=== PATIENT | male | born 1990 | race Caucasian/White ===

== ENCOUNTER 2016-11-14 17:07 | Inpatient (IN) | payer MEDICAID, OTHER ==
[~2016-11-14] VITALS: Ht 172.7 cm; Wt 96.9 kg
[2016-11-14 17:24] VITALS: BP 123/79; PULSE 96; RESP 16; O2SAT 96
--- NOTE | 2016-11-14 18:25 | ED.REPORT ---
HPI-Psychiatric Illness Date of Service Nov 14, 2016 ED Provider: Elijah Auguste MD This is a 26 year male with a history of bipolar disorder and asthma presenting to the emergency department accompanied by parents due to abnormal behavior that began 6 hours ago. Pt states he tried to jump out of a moving car "without thinking of the consequences." Pt does not remember the reason for his actions. Pt states he was frustrated today because he was arguing with his parents but he is unaware of why. Additionally, he states that he was walking his dog 3 hours ago and walked in front of a car without realization, "I just wasn't paying attention." He adds, "I feel like I don't belong on earth...I don't want to end my life, I just don't want to be here." He denies previous suicidal attempt. Denies hallucinations. Family members report that anger and verbal aggression has progressively worsened in the last few months. Father adds that he has been abusing his pet cat. Treatment managed at [facility]. Nursing Notes Stated Complaint: PSYCH EVAL Chief Complaint: Psychiatric Complaint Nursing Notes Reviewed: Yes Allergies: Coded Allergies: diphenhydramine (Verified Allergy, Unknown, Agitation, 11/14/16) Anger General Time Seen by MD: 18:24 Chief Complaint Suicidal attempt Hx Obtained From: Patient, Other family... (Mother) Arrived By: Walk-in Onset Occurred: 5 - 8 hours ago Symptom Duration: Since onset Severity: Current: No pain currently Pertinent Negative: Pt denies other symptoms Recent Healthcare: No recent doctor visit, No recent hospitalization Similar Sx Previous: No Risk-Psychiatric Illness Suicide Risk Stratification RF Statements: Risk factors reviewed, No risk factors Past Medical History Past Medical History History of psychiatric illness Ambulatory Status Independent Review of Systems Constitutional: Denies: Chills, Fever GI: Denies: Abdominal pain, Nausea, Vomiting Psychiatric: Reports: Agitation, Suicidal ideation, Denies: Homicidal ideation Complete sys rev & neg: except as marked. Physical Exam Initial Vital Signs Vital Signs (First) Date Time Temp Pulse Resp B/P Pulse Ox O2 Delivery O2 Flow Rate FiO2 11/14/16 17:24 36.7 96 16 123/79 96 Room Air Initial VS: Reviewed Head / Eyes: Atraumatic, Normocephalic, PERRL ENT: Mucous membranes moist, Conjunctiva normal, No scleral icterus Neck: Supple, Non-tender, Full range of motion Respiratory: Breath sounds normal, Clear to auscultation, No respiratory distress Cardiovascular: Regular rate & rhythm, Heart sounds normal, Intact distal pulses Extremities: Vascular intact, Neuro intact, No swelling, No tenderness Skin: Warm, Dry, No cyanosis General/Constitutional: Awake Neurologic: Oriented X3, Speech NL, No motor deficits, No sensory deficits, Memory NL Psychiatric: Not homicidal, No hallucinations Interpretation & Diagnostics Interpretation & Diagnostics: Urine Dip: + opiates + tricyclics Breathalyzer: 0 Lab Results Interpretation Result Diagram: 11/14/16194811/14/161948 Test 11/14/16 19:49 White Blood Count 8.1th/mm3 (3.8-10.1) Red Blood Count 5.14mil/mm3 (4.40-5.80) Hemoglobin 13.3g/dL (13.8-17.2) Hematocrit 40.5% (41.0-50.0) Mean Corpuscular Volume 78.8fL (81-100) Mean Corpuscular Hemoglobin 25.9pg (27.0-35.0) Mean Corpuscular Hemoglobin Concent 32.8% (32.0-37.0) Red Cell Distribution Width 13.1% (12.3-15.4) Platelet Count 246bil/L (150-400) Neutrophils (%) (Auto) 54.9% (40-74) Lymphocytes (%) (Auto) 34.6% (14-46) Monocytes (%) (Auto) 8.2% (4-12) Eosinophils (%) (Auto) 1.9% (0-5) Basophils (%) (Auto) 0.4% (0-3) Sodium Level 141mEq/L (134-144) Potassium Level 3.7mEq/L (3.5-5.2) Chloride Level 106mEq/L (97-108) Carbon Dioxide Level 18mmol/L (18-29) Blood Urea Nitrogen 20mg/dL (6-20) Creatinine 1.55mg/dL (0.76-1.27) Estimat Glomerular Filtration Rate 58mL/min (>59) Glucose Level 122mg/dL (60-99) Calcium Level 9.1mg/dL (8.5-10.1) Total Bilirubin 0.2mg/dL (0.0-1.2) Aspartate Amino Transf (AST/SGOT) 16U/L (0-50) Alanine Aminotransferase (ALT/SGPT) 12U/L (0-44) Alkaline Phosphatase 120U/L (25-150) Total Protein 7.3g/dL (6.4-8.4) Albumin 4.8g/dL (3.4-5.0) Thyroid Stimulating Hormone (TSH) 0.910uIU/mL (0.450-4.500) Hold Guajardo Top Tube Received (Received) Re-Eval/Medical Decision Med Decision/Clinical Course Will be evulated by licensed clinical social worker in the morning. Re-Evaluation/Progress : Time of Eval: 21:16 Re-Evaluation/Progress Note: Discussed plan for re-evaluation by social problems specialist in the morning. Counseled Regarding: Diagnosis, Lab results, Need for follow-up Discharge & Departure Shift Change Sign-Out Patient Care Transferred: Yes Discussed Complaint(s): Yes Laboratory Evaluation: Back, reviewed by me Input from Consult: Awaiting licensed clinical social worker in am. Given usual evening meds. Additonal Information: To Dr Wright at midnight. Impression: Primary Impression: Agitation Discharge Condition All VS Reviewed: Yes Condition: Stable Referrals: [facility] (PCP) Care Transferred to: Dr. Wright at change of shift Care Transferred at: 00:00 Nina Attestation Portions of this note were transcribed by Uvaldo Kimbrough. I, Dr. Auguste personally performed the history, physical exam and medical decision-making; I reviewed and confirmed the accuracy of the information in the transcribed note. Signed by Nina Mann, 11/14/2016 at 20:00. Elijah Auguste MD Nov 14, 2016 18:25 UVALDO KIMBROUGH Nov 14, 2016 18:28
[2016-11-14 20:02] LABS: BASOPHILS % (AUTO) 0.4 % (0-3); EOSINOPHILS % (AUTO) 1.9 % (0-5); MONOCYTES % (AUTO) 8.2 % (4-12); Mean Corpuscular Hemoglobin 25.9 pg (27.0-35.0); Mean Corpuscular Volume 78.8 fL (81-100); NEUTROPHILS % (AUTO) 54.9 % (40-74); Platelet Count 246 bil/L (150-400)
[2016-11-14] MEDS ORDERED: lamoTRIgine 100 mg Tablet PO ONE (21:15)
[2016-11-15] MEDS ORDERED: Ondansetron 8 mg ODT Tablet ONE (04:32)
[2016-11-15] MEDS ORDERED: Ondansetron 8 mg ODT Tablet PO ONE (06:00)
[2016-11-15 06:04] VITALS: BP 126/81; PULSE 89; RESP 16; O2SAT 97
[2016-11-15 12:59] VITALS: BP 140/95; PULSE 81; O2SAT 100
[2016-11-15] MEDS ORDERED: ZLP10T PO (14:03)
[2016-11-15] MEDS ORDERED: AMIT100T2 PO (14:04)
[2016-11-15] MEDS ORDERED: TOPI100C5 PO (14:04)
[2016-11-15] MEDS ORDERED: LAMO100T2 PO (14:05)
[2016-11-15] MEDS ORDERED: ATRINH INH (14:06)
[2016-11-15] MEDS ORDERED: MONT10TA23 PO (14:06)
[2016-11-15] MEDS ORDERED: PYRI60TA PO (14:07)
[2016-11-15] MEDS ORDERED: METO10TA3 PO (14:08)
[2016-11-15] MEDS ORDERED: PERP4TAB11 PO ×2 (14:09)
[2016-11-15 15:59] VITALS: BP 140/95; PULSE 81; RESP 16; O2SAT 100
[2016-11-15] MEDS ORDERED: Magnesium Hydroxide 10 mL Oral Concentration PO PRN (19:10)
[2016-11-15] MEDS ORDERED: Benzocaine-Menthol Lozenge 2/Pkg PO PRN (19:10)
[2016-11-15] MEDS ORDERED: Alum-Mag Hydrox-Simeth 30 mL Suspension PO PRN (19:10)
[2016-11-15] MEDS ORDERED: Ipratropium HFA 200 Puff 12.9 Gm Inhaler INHALATION PRN (19:15)
[2016-11-15] MEDS: lamoTRIgine 100 mg Tablet PO SCH (21:10)
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
--- NOTE | 2016-11-16 04:48 | NUR ---
Observations 1900 to 0700 Pt affect was flat. Pt was anxious at times. Pt asked to watch a relaxation DVD to hep him settle down. Pt socialized with peers the rest of the night before he went to bed. pt first appeared asleep at 22:15 and was observed every 15 minutes through the night as directed.
--- NOTE | 2016-11-16 05:33 | NUR ---
nursing, nights, 11-7 s/o- has appeared to sleep after 2214 during q 15 minute assessments. a- no apparent distress. p- monitor behavior/emotional state, quality, times and amount of sleep, use and effect of medication. jeanna
--- NOTE | 2016-11-16 14:42 | NUR ---
S: "Staring at screens was making me sick" O: Behavior, pt participated in group activities, socializing appropriately with fellow pts and staff, appropriate eye contact, some pacing the hallways. very talkative. Reports loud music makes him more manic. Limited range of emotional expression. Speech monotone, verbose. Denies AH, VH, SI. Pt reports concerns about constipation. Requested and given milk of magnesia. Mental status alert, awake. Thought content clear, concrete. Well groomed. 138/91, 91, 16, 36.1. A: Pt adjusting to unit well. P: Continue with treatment plan, provide calm quiet environment. Continue to monitor.
[2016-11-16] MEDS: LORazepam 1 mg Tablet PO PRN (16:13)
--- NOTE | 2016-11-16 16:45 | PCM.PNPSY ---
Subjective Date of Service Nov 16, 2016 Subjective The patient reports that he is feeling much better today with decreased toe tapping and decreased fidgeting. He reports that he is not been putting his finger in his nose and does have decreased the chewing. He reports that he is had no anger outbursts or irritability. The patient is socializing with peers on the unit and reports that this is helpful in maintaining his mood stability. He denies side effects. Sleep: "Okay" 7.75 hours per staff. Appetite: "Pretty good" Suicidal and homicidal ideation: Denies Auditory hallucinations/Visual hallucinations: Denies Other Psychotic Symptoms: N/A Anxiety: "Up and down, can't put a number on it" Depression: "In the middle" Current Medications Current Medications Amantadine HCl 100 mg BID PO Last administered on 11/16/16 08:27; Admin Dose 100 MG; Start 11/15/16 at 20:30 Amitriptyline HCl 100 mg HS PO Last administered on 11/15/16 21:10; Admin Dose 100 MG; Start 11/15/16 at 21:00 Amitriptyline HCl 100 mg ONCE ONCE PO Last administered on 11/14/16 21:58; Admin Dose 100 MG; Start 11/14/16 at 21:15; Stop 11/14/16 at 21:18; Status DC Lamotrigine 100 mg HS PO Last administered on 11/15/16 21:10; Admin Dose 100 MG ; Start 11/15/16 at 21:00 Lamotrigine 100 mg ONCE ONCE PO Last administered on 11/14/16 21:38; Admin Dose 100 MG; Start 11/14/16 at 21:15; Stop 11/14/16 at 21:18; Status DC Lorazepam 1 mg Q4H PRN PO Last administered on 11/16/16 16:13; Admin Dose 1 MG ; Start 11/15/16 at 19:10 Magnesium Hydroxide 10 ml Q12H PRN PO Last administered on 11/16/16 14:14; Admin Dose 10 ML; Start 11/15/16 at 19:10 Montelukast Sodium 10 mg DAILY PO Last administered on 11/16/16 08:49; Admin Dose 10 MG; Start 11/16/16 at 08:30 Ondansetron HCl 8 mg STK-MED ONCE .ROUTE Last administered on 11/15/16 04:37; Admin Dose 8 MG; Start 11/15/16 at 04:32; Stop 11/15/16 at 04:34; Status DC Perphenazine 8 mg DAILY PO Last administered on 11/16/16 08:27; Admin Dose 8 MG ; Start 11/16/16 at 08:30 Perphenazine 8 mg ONCE ONCE PO Last administered on 11/14/16 21:37; Admin Dose 8 MG; Start 11/14/16 at 21:25; Stop 11/14/16 at 21:26; Status DC Perphenazine 8 mg ONCE ONCE PO Last administered on 11/15/16 15:26; Admin Dose 8 MG; Start 11/15/16 at 14:45; Stop 11/15/16 at 14:46; Status DC Perphenazine 16 mg HS PO Last administered on 11/15/16 21:11; Admin Dose 16 MG; Start 11/15/16 at 21:00 Pyridostigmine [place] 60 mg DAILY PO Last administered on 11/16/16 08:27; Admin Dose 60 MG; Start 11/16/16 at 08:30 Pyridostigmine [place] 60 mg ONCE ONCE PO Last administered on 11/15/16 15:26; Admin Dose 60 MG; Start 11/15/16 at 14:45; Stop 11/15/16 at 14:46; Status DC Topiramate 150 mg BID PO Last administered on 11/16/16 08:42; Admin Dose 150 MG ; Start 11/15/16 at 20:30 Topiramate 300 mg ONCE ONCE PO Last administered on 11/14/16 21:37; Admin Dose 300 MG; Start 11/14/16 at 21:15; Stop 11/14/16 at 21:18; Status DC Zolpidem Tartrate 10 mg HS PRN PO Last administered on 11/15/16 21:38; Admin Dose 10 MG; Start 11/15/16 at 20:20 Zolpidem Tartrate 10 mg ONCE ONCE PO Last administered on 11/14/16 21:42; Admin Dose 10 MG; Start 11/14/16 at 21:25; Stop 11/14/16 at 21:26; Status DC Mental Status Exam Appearance: Neat/well groomed Attitude: Pleasant, Cooperative Behavior: Overtly anxious (some rocking) Affect: Well Modulated/Appropriate Mood: Anxious Thought Process/Associations: Logical/Sequential, Goal Directed Speech Production: Normal Speech Rate: Normal Speech Articulation: Normal Thought Content: Appropriate Danger to Self/Suicidal Ideati: None Danger to Others: None Hallucinations: Auditory (Denies), Visual (Denies) Consciousness: Alert Orientation: Person, Place, Date, Situation Estimate Intellectual Function: Below Average (by history) Insight: Good Judgement: Limited Result Diagram: 11/14/16194811/14/161948 Mental Health Plan The patient is a 26-year-old male with a history of bipolar disorder who presents with worsening anger and irritability. The patient was recently prescribed Tegretol in September which would have lowered his perphenazine and amitriptyline levels, possibly leading to increased irritability. He is no longer taking this medication. The patient also appeared to have restlessness which could be consistent with akathisia from the perphenazine. He also presents with symptoms that are consistent with posttraumatic stress disorder but does not appear to meet full criteria. The patient also reports a history of intellectual disability. The patient had previously reported nightmares although appears to slept well last night. Although the patient has a history of bipolar disorder he does receive amitriptyline although this medication is not unopposed by lamotrigine but could be driving some of his jun. The patient is reluctant to change medications such as increasing lamotrigine and decreasing amitriptyline. The patient appears to responded well to amantadine with decreased symptoms overall. [place] Deer[place] I 1. Bipolar manic with psychotic features, by history, current episode mixed without psychotic features. 2. Mood disorder, unspecified versus posttraumatic stress disorder. [place] II Intellectual impairment by history. [place] III Asthma, recent testicular infection. [place] IV Moderate with difficulty in interpersonal interactions and limited activity outside the home. [place] V Global assessment of functioning 35 Medications Medications to address General Physical Health Treatments 1. The patient will be admitted to the Mental Health Unit and provided a safe environment. 2. The patient is not currently exhibiting homicidal or suicidal ideation and does not warrant an increased level of observation or 1 to 1. 3. Outpatient medications will be continued while in the hospital. 4. He will also receive Atrovent 2 puffs four times a day as needed for shortness of breath. 5. Amantadine 100 mg p.o. b.i.d. will be started for akathisia and possible EPS as well as impulsivity. Medication will be titrated as needed. 6. Outpatient records have been requested from his provider. 7. Anticipated length of stay is 5-7 days. Jatinder Duff MD Nov 16, 2016 16:45
--- NOTE | 2016-11-16 17:36 | NUR ---
Cot[employer]/Counselor: S: "The word 'headache' is a trigger word for me, when I hear that word, I usually get a headache." O: Patient slept 7.25 hours last night as per staff. He denies S/I and H/I. He also denies auditory and visual hallucinations. Depression is "in the middle, it's tolerable, I can't rate it" and anxiety is "up and down, I can't rate it." When asked his mood, patient stated, "I feel better." Patient reports that he is not picking his nose or biting his bottom lip as much as he once did before coming to [facility]. A: Patient is cooperative, anxious, good insight, limited judgment. P: Follow care plan, coordinate out-patient providers.
--- NOTE | 2016-11-16 18:31 | NUR ---
NURS note [id number] shift Orientation:3x Mood:"I feel pretty nervous." Anxiety 7/10, depression "not much." Affect: Anxious, pleasant, cooperative. Behavior: Pt up in day room, participating in activity most of day. Currently, visiting with family. Making frequent requests of staff. Taps foot, bites lips, and picks at inside of nose and fingernails when nervous. Thought processes: Logical, somewhat tangential. PRN/Nursing Note: Lorazepam 1 mg for anxiety at 1600. Milk of magnesia 10 mg at 1400 for constipation.
--- NOTE | 2016-11-16 18:39 | NUR ---
[facility] Day Shift Pt maintained behavioral control throughout the shift. Pt affect appears mostly flat, bright when engaged with staff and peers. Pt appears quite needy throughout the shift, seeking constant interaction with staff and peers. Pt complains of various physical and mental annoyances throughout the shift (i.e. pt complains of small tics, itches). Pt occasionally appears restless throughout the shift. Pt attended community meeting in the AM and group activities throughout the shift. Pt attended all meals and ate approx 100% of all meals.
[2016-11-16 18:48] VITALS: BP 138/91; PULSE 91; RESP 16
[2016-11-16] MEDS ORDERED: Sodium Chloride NAS 45 mL Spray NASAL PRN (18:55)
[2016-11-16] MEDS: lamoTRIgine 100 mg Tablet PO SCH (21:20)
--- NOTE | 2016-11-17 05:22 | NUR ---
Pt had visit from family. Out on unit in evening. Asleep at 2200. Pt observed every 15 minutes as ordered.
--- NOTE | 2016-11-17 05:30 | NUR ---
nursing, nights, 11-7 s/o- has appeared to sleep after 2200 during q 15 minute assessments. a- no apparent distress. p- monitor behavior/emotional state, quality, times and amount of sleep, use and effect of medication. jeanna
[2016-11-17] MEDS: LORazepam 1 mg Tablet PO PRN ×3 (10:14→15:21)
--- NOTE | 2016-11-17 12:21 | NUR ---
NURS note day shift Orientation:x4 Mood: Depression 12/22; anxiety 04/23, decreased to 4/10 after PRN. Affect: Blunted, anxious. Pt stated that he began feeling angry and agitated when talking with other pts in day room, given PRN ativan. Behavior: Endorses SI, denies plan but states "I saw a noose" and "I saw myself ." Pt up in day room most of shift. Frequently asks staff to talk about various problems/issues/symptoms. Denies HI, AH, and VH; but does reported hearing "audiotape" of voices form the past and has visions "as if watching a movie in [his] head." Thought processes: Tangential. PRN/Nursing Note: Ativan 1 mg PRN for agitation and anxiety, effective. Report transient weakness in arms/wrists.
[2016-11-17 16:45] VITALS: BP_SYST 115; BP_SYST 120; BP_DIAS 70; PULSE 77; PULSE 80; RESP 16
--- NOTE | 2016-11-17 17:26 | PCM.PNPSY ---
Subjective Date of Service Nov 17, 2016 Subjective The patient reports that he he feels that the medication is still quite helpful. He reports that the triggers are not bothering him as much. Examples of triggers are yelling, raised voices, "rents" and "cussing." He reports that they do not last as long as they are not as bad. He reports that he has not been excoriating his nose and his lip biting is better. He reports limiting game time may be beneficial and states his father is working on this for home. Although he denies chong auditory hallucinations, he does report having memories still running in his head like a tape recorder but the 2 are not as bad. He reports that he is scratching his body somewhat but this also is reduced. He states that he is still not sure whether he is ready to go home as he is having some increased restlessness and night. He would like to optimize medications. He denies side effects. Sleep: 8+ hours per staff. Appetite: "good" Suicidal and homicidal ideation: Denies Auditory hallucinations/Visual hallucinations: Denies Other Psychotic Symptoms: N/A Anxiety: "Lower" 1-5/10 "it is hard to put a number to it" Depression: "A lot lower" 1-5/10 "it is hard to put a number to it" Current Medications Current Medications Amantadine HCl 100 mg BID PO Last administered on 11/17/16 08:14; Admin Dose 100 MG; Start 11/15/16 at 20:30 Amitriptyline HCl 100 mg HS PO Last administered on 11/16/16 21:20; Admin Dose 100 MG; Start 11/15/16 at 21:00 Lamotrigine 100 mg HS PO Last administered on 11/16/16 21:20; Admin Dose 100 MG ; Start 11/15/16 at 21:00 Lorazepam 1 mg Q4H PRN PO Last administered on 11/17/16 10:14; Admin Dose 1 MG ; Start 11/15/16 at 19:10 Magnesium Hydroxide 10 ml Q12H PRN PO Last administered on 11/16/16 14:14; Admin Dose 10 ML; Start 11/15/16 at 19:10 Montelukast Sodium 10 mg DAILY PO Last administered on 11/17/16 08:11; Admin Dose 10 MG; Start 11/16/16 at 08:30 Perphenazine 8 mg DAILY PO Last administered on 11/17/16 08:12; Admin Dose 8 MG ; Start 11/16/16 at 08:30 Perphenazine 16 mg HS PO Last administered on 11/16/16 21:20; Admin Dose 16 MG; Start 11/15/16 at 21:00 Pyridostigmine [place] 60 mg DAILY PO Last administered on 11/17/16 08:11; Admin Dose 60 MG; Start 11/16/16 at 08:30 Topiramate 150 mg BID PO Last administered on 11/17/16 08:13; Admin Dose 150 MG ; Start 11/15/16 at 20:30 Zolpidem Tartrate 10 mg HS PRN PO Last administered on 11/16/16 21:23; Admin Dose 10 MG; Start 11/15/16 at 20:20 Mental Status Exam Appearance: Neat/well groomed Attitude: Pleasant, Cooperative Behavior: Overtly anxious (some toe tapping) Affect: Well Modulated/Appropriate Mood: Anxious Thought Process/Associations: Logical/Sequential, Goal Directed Speech Production: Normal Speech Rate: Normal Speech Articulation: Normal Thought Content: Appropriate Danger to Self/Suicidal Ideati: None Danger to Others: None Hallucinations: Auditory (Denies), Visual (Denies) Consciousness: Alert Orientation: Person, Place, Date, Situation Estimate Intellectual Function: Below Average (by history) Insight: Good Judgement: Limited Result Diagram: 11/14/16194811/14/161948 Mental Health Plan The patient is a 26-year-old male with a history of bipolar disorder who presents with worsening anger and irritability. The patient was recently prescribed Tegretol in September which would have lowered his perphenazine and amitriptyline levels, possibly leading to increased irritability. He is no longer taking this medication. The patient also appeared to have restlessness which could be consistent with akathisia from the perphenazine. He also presents with symptoms that are consistent with posttraumatic stress disorder but does not appear to meet full criteria. The patient also reports a history of intellectual disability. The patient had previously reported nightmares but has slept well so far. Although the patient has a history of bipolar disorder he does receive amitriptyline although this medication is not unopposed by lamotrigine but could be driving some of his jun. The patient is reluctant to change medications such as increasing lamotrigine and decreasing amitriptyline. The patient appears to responded well to amantadine with decreased symptoms overall. The patient was agreeable to increasing the nighttime dose. [place] Bagdad I 1. Bipolar manic with psychotic features, by history, current episode mixed without psychotic features. 2. Mood disorder, unspecified versus posttraumatic stress disorder. [place] II Intellectual impairment by history. [place] III Asthma, recent testicular infection. [place] IV Moderate with difficulty in interpersonal interactions and limited activity outside the home. [place] V Global assessment of functioning 40 Medications Amantadine 100 mg twice daily Topiramate 150 mg twice daily Perphenazine 8 mg daily and 60 mg nightly Singulair 10 mg daily Mestinon 60 mg daily Ambien 10 mg nightly when necessary insomnia Lamotrigine 100 mg nightly Amitriptyline 100 mg nightly Treatments 1. The patient will be admitted to the Mental Health Unit and provided a safe environment. 2. The patient is not currently exhibiting homicidal or suicidal ideation and does not warrant an increased level of observation or 1 to 1. 3. Outpatient medications will be continued while in the hospital. 4. He will also receive Atrovent 2 puffs four times a day as needed for shortness of breath. 5. Amantadine will be increased to 100 mg daily and 200 mg nightly. 6. Outpatient records have been requested from his provider. 7. Anticipated length of stay is 5-7 days. Jatinder Duff MD Nov 17, 2016 17:26
--- NOTE | 2016-11-17 17:58 | NUR ---
[facility] Day Shift Pt affect and behavior unchanged from previous shift. Pt maintained behavioral control throughout the shift. Pt affect appears mostly flat, bright when engaged with staff and peers. Pt appears quite needy throughout the shift, seeking constant interaction with staff and peers. Pt complains of various physical and mental annoyances throughout the shift (i.e. pt complains of small tics, itches). Pt occasionally appears restless throughout the shift. Pt attended community meeting in the AM and group activities throughout the shift. Pt attended all meals and ate approx 100% of all meals.
--- NOTE | 2016-11-17 18:13 | NUR ---
Director Of Curriculum And Instruction/Counselor: S: "I'm going to try and get my family to trigger me when they come and visit [facility]." O: Patient slept 8+ hours last night as per staff. He denies S/I and H/I. He denies auditory and visual hallucinations. Depression is "a lot lower" 1-510 and anxiety is "pretty bad" 1-510. Patient stated that he plays videos games instead of doing his chores and it makes his family mad at him. He then stated that his dad told him that he's going to put a time limit on patient's video time. A: Patient is cooperative, anxious, blunted affect, limited insight, limited judgment. P: Follow care plan, coordinate out-patient providers.
[2016-11-17] MEDS: lamoTRIgine 100 mg Tablet PO SCH (20:41)
--- NOTE | 2016-11-18 04:57 | NUR ---
Pt had visit from family. Out on unit in evening. Asleep at 2115. Pt observed every 15 minutes as ordered.
--- NOTE | 2016-11-18 05:42 | NUR ---
nursing, nights, 11-7 s- can i have something for nausea ? i've been throwing up for awhile. can i have some silvio seltzer ? something for diarrhea ? tamaflu ? i have the flu. thank you. o- has appeared to sleep after 2114. up at 0515 with multiple somatic complaints. received 10 mg of reglan. is now alternating between his room and updating staff on his condition and needs. assessed q 15 minutes. a- dramatic and needy at times. responds well to staff support and reassurance. no apparent physical distress. will monitor for signs and symptoms and effect of medication. p- monitor behavior/emotional state, quality, times and amount of sleep, use and effect of medication. jeanna
--- NOTE | 2016-11-18 10:51 | NUR ---
Day shift nursing note-Anxiety/Depression/Sleep/Nutrition/Psychosis S/O-"May I have my medications next?" "I want to go back to my room to sleep." Pt. reported he did not sleep well because he was throwing up all night. However, there was no evidence of him being sick during the night. He ate most of his breakfast and took his medication one pill at a time with milk saying it was staying down. He has not had any episodes of behavioral problems. He appears pale and has been attending groups. he denies any current SI. A-Blunted affect. Lack of insight. P-Monitor for safety per protocol. Assess efficacy of meds to manage psychosis and decrease anxiety and depression. Encourage use of better coping mechanisms while attending groups.
--- NOTE | 2016-11-18 12:50 | PCM.PNPSY ---
Subjective Date of Service Nov 18, 2016 Subjective The patient is reporting that he had watery stools and some stomach pain overnight. He reports being hungry but could not eat. The patient reported that he did some testing with his family during their visit and although he was tense he calmed down faster. He reports that he has not been excoriating his nose and his lip biting is decreased. Although he denies chong auditory hallucinations, he does report having memories still running in his head like a tape recorder but but this too is not as bad. He states that he is unsure whether he is ready to go home, but we discussed that given his symptoms and presentation, he may be close to optimally benefiting from inpatient hospitalization and longer hospitalization may be detrimental. He still would like to optimize medications. He denies side effects. Sleep: 8+ hours per staff. Appetite: "Hungry but I could not eat" Suicidal and homicidal ideation: Denies Auditory hallucinations/Visual hallucinations: Denies Other Psychotic Symptoms: N/A Anxiety: "Higher talking to you guys" 04/23 Depression: "Higher because of sickness" Current Medications Current Medications Amantadine HCl 100 mg DAILY PO Last administered on 11/18/16 08:20; Admin Dose 100 MG; Start 11/18/16 at 08:30 Amantadine HCl 200 mg HS PO Last administered on 11/17/16 20:42; Admin Dose 200 MG; Start 11/17/16 at 21:00 Mental Status Exam Appearance: Neat/well groomed Attitude: Pleasant, Cooperative Behavior: Overtly anxious (very mild shifting in seat) Affect: Well Modulated/Appropriate Mood: Anxious Thought Process/Associations: Logical/Sequential, Goal Directed Speech Production: Normal Speech Rate: Normal Speech Articulation: Normal Thought Content: Appropriate, Other ("tape recorder" of memories) Danger to Self/Suicidal Ideati: None Danger to Others: None Hallucinations: Auditory (Denies), Visual (Denies) Consciousness: Alert Orientation: Person, Place, Date, Situation Estimate Intellectual Function: Below Average (by history) Attention/Concentration & Cogn: Impaired Insight: Good Judgement: Limited Result Diagram: 11/14/16194811/14/161948 Mental Health Plan The patient is a 26-year-old male with a history of bipolar disorder who presents with worsening anger and irritability. The patient was recently prescribed Tegretol in September which would have lowered his perphenazine and amitriptyline levels, possibly leading to increased irritability. He is no longer taking this medication. The patient also appeared to have restlessness which could be consistent with akathisia from the perphenazine. He also presents with symptoms that are consistent with posttraumatic stress disorder but does not appear to meet full criteria. The patient also reports a history of intellectual disability. The patient had previously reported nightmares but has slept well so far. Although the patient has a history of bipolar disorder he does receive amitriptyline although this medication is not unopposed by lamotrigine but could be driving some of his jun. The patient is reluctant to change medications such as increasing lamotrigine and decreasing amitriptyline. The patient appears to responded well to amantadine with decreased symptoms overall. The patient was agreeable to increasing the nighttime dose. We discussed that the patient would likely not tolerate this environment for much longer and that he should discuss his progress with his parents and potentially discharge tomorrow or Sunday. Alstead Alstead I 1. Bipolar manic with psychotic features, by history, current episode mixed without psychotic features. 2. Mood disorder, unspecified versus posttraumatic stress disorder. [place] II Intellectual impairment by history. [place] III Asthma, recent testicular infection. [place] IV Moderate with difficulty in interpersonal interactions and limited activity outside the home. [place] V Global assessment of functioning 40 Medications Amantadine 100 mg daily and 200 mg nightly Topiramate 150 mg twice daily Perphenazine 8 mg daily and 60 mg nightly Singulair 10 mg daily Mestinon 60 mg daily Ambien 10 mg nightly when necessary insomnia Lamotrigine 100 mg nightly Amitriptyline 100 mg nightly Treatments 1. The patient will be admitted to the Mental Health Unit and provided a safe environment. 2. The patient is not currently exhibiting homicidal or suicidal ideation and does not warrant an increased level of observation or 1 to 1. 3. Outpatient medications will be continued while in the hospital. 4. He will also receive Atrovent 2 puffs four times a day as needed for shortness of breath. 5. Amantadine will be continued at 100 mg daily and 200 mg nightly. 6. Outpatient records from [facility] were received and indicated a concern about his treatment with testosterone and the recent stress of his grandmother's . 7. Anticipated length of stay is 1-2 additional days. Jatinder Duff MD Nov 18, 2016 12:50
[2016-11-18] MEDS: LORazepam 1 mg Tablet PO PRN (13:37)
--- NOTE | 2016-11-18 15:35 | PCM.DIMED ---
Discharge Instructions Date of Service Nov 18, 2016 Dates of Hospitalization Nov 15, 2016 at 15:20 Discharge Diagnosis Discharge Diagnosis [place] I 1. Bipolar manic with psychotic features, by history, current episode mixed without psychotic features. 2. Mood disorder, unspecified versus posttraumatic stress disorder. [place] II Intellectual impairment by history. [place] III Asthma, recent testicular infection. [place] IV Moderate with difficulty in interpersonal interactions and limited activity outside the home. [place] V Global assessment of functioning 50 Diet No restrictions Activity No restrictions Patient Instructions Should you have any thoughts of harming yourself or others, please call the crisis line, your provider, 911, or go to the nearest Emergency Department. Do not change or discontinue your medications without discussing with your provider. You have been given a prescription for 30 days supply of your new medication Follow-up plan Therapist Gaurang Green on 11/22/16 at 10:00am [address] [place] [id number] Prescriber ARI Lawson on 11/22/16 at 10:30am [address] [place] [id number] Jatinder Duff MD Nov 18, 2016 15:35
[2016-11-18] MEDS ORDERED: LORA-303 PO (15:37)
[2016-11-18] MEDS ORDERED: AMN100C PO ×2 (15:37)
--- NOTE | 2016-11-18 16:04 | NUR ---
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 He denies S/I and H/I. He denies auditory and visual hallucinations. Depression is 7/10 and anxiety is "higher when I talk about things." Patient stated that he thinks he will be better when he discharges. Out-patient appointments: Gaurang rGeen, [facility] counselor, 11/22/16 at 10:00am and ARI Lawson, [facility] prescriber, 11/22/16 at 10:30am. A: Patient is cooperative, anxious, blunted affect, limited insight, limited judgment. P: Follow care plan, coordinate out-patient providers.
--- NOTE | 2016-11-18 16:59 | NUR ---
Nursing Discharge Note: Patient and his father cooperative with discharge process. Patient requested his father sign all of the paperwork. Acknowledges understanding of d/c instructions and has a copy with them upon leaving unit at 1642. Belongings accounted for and with patient. Prescriptions faxed to patients pharmacy. Patient denies harmful thoughts and hallucinations at this time.
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
== END 2016-11-18 16:40 | disposition home or self-care (01) | DRG 885 ==
LOC: SED 17:07 → MHC 11-15 15:20
PROVIDERS: ADMIT Psychiatry & Neurology Psychiatry; ATTEND Psychiatry & Neurology Psychiatry
DX: F31.60 Bipolar disorder, current episode mixed, unspecified (principal); R45.851 Suicidal ideations; J45.909 Unspecified asthma, uncomplicated